=== PATIENT | male | born 1995 | race African-American/Black ===

== ENCOUNTER 2017-07-22 08:41 | Emergency (ER) | payer OTHER ==
[2017-07-22] MEDS ORDERED: Ketorolac Tromethamine 60 MG/2 ML VIAL ONE (09:02)
--- NOTE | 2017-07-22 10:09 | RAD ---
CHEST 2 VIEWS: DATE: 07/22/17. FINDINGS: The heart is normal in size and the lungs are clear. There is no mediastinal widening or shift. The trachea is midline. No effusion, pneumothorax, or other traumatic change was seen. There is some m ild thoracolumbar scoliosis. There were no acute bony findings. IMPRESSION: No acute thoracic findings. POS: HOME
== END 2017-07-22 09:46 | disposition home or self-care (01) ==
LOC: BURERS 08:41
DX: R07.89 Other chest pain (principal); V43.62XA Car passenger injured in collision with other type car in traffic accident, initial encounter
CPT/HCPCS: 71046; 96372; J1885